=== PATIENT | male | born 1980 | race Caucasian/White ===

== ENCOUNTER 2021-07-22 15:56 | Emergency (ER) | payer OTHER, SELFPAY ==
[2021-07-22 16:03] VITALS: BP 142/90; PULSE 98; RESP 20; TEMP 36.1; O2SAT 100
--- NOTE | 2021-07-22 16:29 | ED.GENADULT ---
HPI - General Adult General Chief complaint: Unspecified Stated complaint: weakness History of Present Illness HPI narrative: This is a a 41-year-old male that comes in complaining stating that he has been taking his medication for diabetes and that his blood pressure was high yesterday and he took some medication of a friend of his he has been feeling tired again and he woke up this yesterday morning with his right eye was red and discontinued to get worse today he has no vision changes is just red Related Data Home Medications Medication Instructions Recorded Confirmed metformin 07/22/21 Allergies Allergy/AdvReac Type Severity Reaction Status Date / Time No Known Allergies Allergy Mild Verified 09/27/19 12:27 Review of Systems Review of Systems: Feeling tired weak with high blood pressure All systems reviewed & are unremarkable except as noted in HPI and below PMFSH Social History Social History Gender identity (if verbalized by the patient): Male Comments At time as signature, I have reviewed and agree with nursing past medical, social, surgical and family history. Please see nursing chart for further information. There is no relevant family history pertinent to the presenting complaint. Exam Narrative: GENERAL:Well-appearing, well-nourished, and in no acute distress. HEAD:Normocephalic, atraumatic. EYES: PERRLA subconjunctival hemorrhage ENT: Nares clear, no rhinorrhea or epistaxis. Mucous membranes moist. NECK: Supple. CHEST: Clear to auscultation. No respiratory distress. HEART: Regular rate and rhythm. No murmur heard. Normal peripheral pulses. ABDOMEN: Soft, nontender, nondistended, normal active bowel sounds. EXTREMITIES: Normal range of motion. No edema. SKIN: Warm, dry, no rash. NEURO: No focal deficits. Alert and oriented x3. Hypertensive, diabetes blood sugar 159 Patient is in need of a primary care provider had a long discussion with patient about hypertension and high blood pressure being the same thing as well as diabetes and hypertension being the silent killer explained the risk of a stroke Course Vital Signs Vital signs: Vital Signs Temperature 97.0 F L 07/22/21 16:03 Pulse Rate 98 07/22/21 16:03 Respiratory Rate 20 07/22/21 16:03 Blood Pressure 142/90 H 07/22/21 16:03 Pulse Oximetry 100 07/22/21 16:03 Temperature 97.0 F L 07/22/21 16:03 Pulse Rate 98 07/22/21 16:03 Respiratory Rate 20 07/22/21 16:03 Blood Pressure 142/90 H 07/22/21 16:03 Pulse Oximetry 100 07/22/21 16:03 Medical Decision Making Vital Signs Vital Signs: Vital Signs Temperature 97.0 F L 07/22/21 16:03 Pulse Rate 98 07/22/21 16:03 Respiratory Rate 20 07/22/21 16:03 Blood Pressure 142/90 H 07/22/21 16:03 Pulse Oximetry 100 07/22/21 16:03 Temperature 97.0 F L 07/22/21 16:03 Pulse Rate 98 07/22/21 16:03 Respiratory Rate 20 07/22/21 16:03 Blood Pressure 142/90 H 07/22/21 16:03 Pulse Oximetry 100 07/22/21 16:03 Lab Data Labs: Lab Results 07/22/21 Range/Units 16:38 POC Capillary Glucose 156 H (65-105) mg/dl Discharge Plan Discharge Clinical Impression: Subconjunctival hemorrhage of right eye Hypertension Qualifiers: Hypertension type: unspecified Qualified Code(s): I10 - Essential (primary) hypertension Diabetes Qualifiers: Diabetes mellitus type: type 2 Diabetes mellitus director long term care insulin use: without director long term care use Diabetes mellitus complication status: without complication Qualified Code(s): E11.9 - Type 2 diabetes mellitus without complications Patient Disposition: Home, Self-Care Condition: Stable Instructions: Antibiotic Form, Subconjunctival Hemorrhage (ED), Hypertension (ED), Hypertension and Diabetes (ED) Additional Instructions: Your blood pressure was elevated in the clinic today, Please JACOB schedule a followup visit with your personal physician with in the next 1-4 weeks for further evaluati
[2021-07-22 16:42] LABS: Glucose Point of Care 156 mg/dl (65-105)
== END 2021-07-22 17:30 | disposition home or self-care (01) ==
PROVIDERS: Emergency Provider Nurse Practitioner Family
DX: H11.31 Conjunctival hemorrhage, right eye (principal); E11.9 Type 2 diabetes mellitus without complications; I10 Essential (primary) hypertension
CPT/HCPCS: 82948; 99212; G0463

== ENCOUNTER → 2021-07-23 08:25 | Outpatient (CLI) | payer OTHER, SELFPAY ==
[2021-07-23 19:38] LABS: SARS-CoV-2 RNA PCR Negative
== END ==
PROVIDERS: Visit Provider Nurse Practitioner Family
DX: Z20.822 Contact with and (suspected) exposure to COVID-19 (principal)
CPT/HCPCS: C9803; U0003; U0005

== ENCOUNTER 2022-04-05 12:46 | Emergency (ER) | payer OTHER, SELFPAY ==
[2022-04-05 12:53] VITALS: BP 146/87; PULSE 94; RESP 16; TEMP 36.7; O2SAT 99
--- NOTE | 2022-04-05 12:54 | ED.DENTAL ---
HPI - Dental/Oral General Chief complaint: Dental/Oral Stated complaint: tooth pain Time Seen by Provider: 04/05/22 12:54 Source: patient, RN notes reviewed and old records reviewed Mode of arrival: ambulatory Limitations: no limitations History of Present Illness HPI Narrative: 42-year-old male presents to the [facility] with left-sided dental pain. Patient reports that he broke his tooth left lower molar 2 weeks ago and has had increased pain since. Has called [facility] dentistry and is on a waiting list. No treatment prior to arrival. MD Complaint: tooth pain Related Data Home Medications Medication Instructions Recorded Confirmed hydroxyzine HCl 25 mg tablet 1 tablet PO DAILY 04/05/22 04/05/22 losartan 50 mg tablet 1 tablet PO DAILY 04/05/22 04/05/22 montelukast 10 mg tablet 1 tablet PO DAILY 04/05/22 04/05/22 pravastatin 40 mg tablet 1 tablet PO DAILY 04/05/22 04/05/22 sitagliptin 100 mg tablet (Januvia) 1 tablet PO DAILY 04/05/22 04/05/22 trazodone 50 mg tablet 1 tablet PO DAILY 04/05/22 04/05/22 Allergies Allergy/AdvReac Type Severity Reaction Status Date / Time No Known Allergies Allergy Mild Verified 04/05/22 12:54 Review of Systems Review of Systems: All systems reviewed & are unremarkable except as noted in HPI and below Constitutional: Constitutional: Reports no additional constitutional complaints, Denies chills and Denies fever(s) Eyes: Eyes: Reports no additional eye complaints ENT: Reports as per HPI Comments: Dental pain, left lower Cardiovascular: Cardiovascular: Reports no additional cardiovascular complaints, Denies chest pain and Denies dyspnea Respiratory: Respiratory: Reports no additional respiratory complaints, Denies cough and Denies dyspnea Musculoskeletal: Musculoskeletal: Reports no additional musculoskeletal complaints Integumentary/Breasts: Skin/Breast: Reports system reviewed and no additional complaints, except as docu Neurologic: Reports system reviewed and no additional complaints, except as documented Psychiatric: Psychiatric: Reports no additional psychiatric complaints Allergic/Immunologic: Allergic/Immunologic: Reports no additional allergic/immunologic complaints PMFSH Past Medical History Medical History (Updated 04/05/22 @ 19:17 by Sunita Mariscal APRN) Diabetes High cholesterol Hypertension Social History Social History : Male Comments At the time of my signature, I reviewed and agree with the nursing past medical, surgical, social, and family history. There is no relevant family history pertinent to the patient complaint. Exam Const: General: healthy appearing, no acute distress and alert Nutritional Appearance: well nourished Orientation/consciousness: patient oriented x3 Limitations: no limitations HENMT: Head: normal to inspection Ears: external ears normal, TM's normal bilaterally and EAC's normal General nose exam: Normal external nose present and Normal nasal mucous membranes and turbinates present Face and sinus: normal facial exam Mouth: Yes Normal oral and palatal mucosa present Teeth and gingiva: poor dentition Teeth image: 1. Decayed molar 2. Caries noted, swelling to the surrounding gingiva Throat: posterior oropharynx normal, tonsils normal and uvula midline Eyes: Conjunctivae: conjunctivae normal Pupils: Equal, round and reactive pupils present Neck: Neck: normal visual inspection, no lymphadenopathy and no meningeal signs Chest: Chest palpation & inspection: normal inspection of the chest Resp: Effort & Inspection: normal respiratory effort Auscultation: clear to auscultation bilaterally Cardio: Rate: regular rate Rhythm: regular rhythm Skin: General skin exam: normal color Rashes: no rashes Wounds: no wounds Neuro: General: patient oriented x3, moves all extremities, no meningeal signs and no focal
--- NOTE | 2022-04-05 12:54 | ED.DENTAL ---
HPI - Dental/Oral General Chief complaint: Dental/Oral Stated complaint: tooth pain Time Seen by Provider: 04/05/22 12:54 Source: patient, RN notes reviewed and old records reviewed Mode of arrival: ambulatory Limitations: no limitations History of Present Illness HPI Narrative: 42-year-old male presents to the [facility] with dental pain to the left upper and lower. States he chipped his tooth several weeks ago and the pain has been increasing. Patient reports that he is on a waiting list for [facility] school [facility] dentistry but states it will be months. MD Complaint: tooth pain Related Data Home Medications Medication Instructions Recorded Confirmed hydroxyzine HCl 25 mg tablet 1 tablet PO DAILY 04/05/22 04/05/22 losartan 50 mg tablet 1 tablet PO DAILY 04/05/22 04/05/22 montelukast 10 mg tablet 1 tablet PO DAILY 04/05/22 04/05/22 pravastatin 40 mg tablet 1 tablet PO DAILY 04/05/22 04/05/22 sitagliptin 100 mg tablet (Januvia) 1 tablet PO DAILY 04/05/22 04/05/22 trazodone 50 mg tablet 1 tablet PO DAILY 04/05/22 04/05/22 Allergies Allergy/AdvReac Type Severity Reaction Status Date / Time No Known Allergies Allergy Mild Verified 04/05/22 12:54 Review of Systems Review of Systems: All systems reviewed & are unremarkable except as noted in HPI and below Constitutional: Constitutional: Reports no additional constitutional complaints, Denies chills and Denies fever(s) Eyes: Eyes: Reports no additional eye complaints ENT: Reports as per HPI Comments: Dental pain Cardiovascular: Cardiovascular: Reports no additional cardiovascular complaints, Denies chest pain and Denies dyspnea Respiratory: Respiratory: Reports no additional respiratory complaints, Denies cough and Denies dyspnea Musculoskeletal: Musculoskeletal: Reports no additional musculoskeletal complaints Integumentary/Breasts: Skin/Breast: Reports system reviewed and no additional complaints, except as docu Neurologic: Reports system reviewed and no additional complaints, except as documented Psychiatric: Psychiatric: Reports no additional psychiatric complaints Allergic/Immunologic: Allergic/Immunologic: Reports no additional allergic/immunologic complaints [facility] Past Medical History Medical History (Updated 04/05/22 @ 19:17 by Sunita Mariscal APRN) Diabetes High cholesterol Hypertension Social History Social History Gender identity (if verbalized by the patient): Male Comments At the time of my signature, I reviewed and agree with the nursing past medical, surgical, social, and family history. There is no relevant family history pertinent to the patient complaint. Exam Const: General: healthy appearing, no acute distress and alert Nutritional Appearance: well nourished Orientation/consciousness: patient oriented x3 Limitations: no limitations HENMT: Head: normal to inspection Ears: external ears normal, TM's normal bilaterally and EAC's normal General nose exam: Normal external nose present and Normal nasal mucous membranes and turbinates present Face and sinus: normal facial exam Mouth: Yes Normal oral and palatal mucosa present Teeth and gingiva: poor dentition Throat: posterior oropharynx normal, tonsils normal and uvula midline Eyes: Conjunctivae: conjunctivae normal Pupils: Equal, round and reactive pupils present Neck: Neck: normal visual inspection, no lymphadenopathy and no meningeal signs Chest: Chest palpation & inspection: normal inspection of the chest Resp: Effort & Inspection: normal respiratory effort Auscultation: clear to auscultation bilaterally Cardio: Rate: regular rate Rhythm: regular rhythm : General: Yes no CVA tenderness Back/Spine/Pelvis: Back: no CVA tenderness Skin: General skin exam: normal color Rashes: no rashes Wounds: no wounds Neuro: General: patient oriented x3, moves all extremities, no meningeal signs and no focal motor deficits
== END 2022-04-05 13:10 | disposition home or self-care (01) ==
PROVIDERS: Emergency Provider Nurse Practitioner
DX: K02.9 Dental caries, unspecified (principal); S02.5XXA Fracture of tooth (traumatic), initial encounter for closed fracture; X58.XXXA Exposure to other specified factors, initial encounter; E11.9 Type 2 diabetes mellitus without complications; E78.00 Pure hypercholesterolemia, unspecified; I10 Essential (primary) hypertension
CPT/HCPCS: 99213; G0463

== ENCOUNTER 2022-05-18 13:26 | Emergency (ER) | payer OTHER, SELFPAY ==
[2022-05-18] VITALS (29 sets, daily range): BP systolic 127–156; BP diastolic 79–98; PULSE 71–95; RESP 0–18; TEMP 36.6; O2SAT 94–100
--- NOTE | ~2022-05-18 | CT_ITS ---
EXAMINATION: CT brain wo con DATE: 05/18/2022 14:43 INDICATION: Acute headache. TECHNIQUE: Computed tomography (CT) of the head was performed without intravenous contrast. The mA wa s adjusted according to patient size. Iterative reconstruction technique was employed. The dose-lengt h product was 605.33 mGy-cm. COMPARISON: None FINDINGS: There is no intracranial hemorrhage, acute infarction, or abnormal intracranial mass lesion . The ventricles are normal in size. The orbits are normal. There is mild mucosal thickening in the e thmoid sinuses. The mastoid air cells are normal. There are plates and screws involving the skull and facial bones. There are expansile nonaggressive lytic lesions with groundglass matrix and fat in the skull on the right, likely benign. IMPRESSION: 1. Normal brain. Reviewed, dictated and finalized at location A. IMPRESSION: 1. Normal brain.
[2022-05-18] MEDS: METOCLOPRAMIDE HCL INJ 10 MG/2 ML VIAL IV PUSH (14:10)
[2022-05-18] MEDS: LACTATED RINGERS 1,000 ML 999 ML IV CONT (14:10)
[2022-05-18] MEDS: diphenhydrAMINE HCl INJ 50 MG/ML VIAL 25 MG IV PUSH (14:10)
--- NOTE | 2022-05-18 14:29 | ED.GENADULT ---
HPI - General Adult General Chief complaint: Nausea/Vomiting/Diarrhea Stated complaint: nausea, body aches, headache Time Seen by Provider: 05/18/22 13:34 Source: patient Mode of arrival: ambulatory Limitations: no limitations History of Present Illness HPI narrative: This is a 42 year old male with history of hypertension and Diabetes Mellitus who presents for evaluation of nausea, vomiting and headache. He was diagnosed with COVID on 05/02/22. He states he woke up with diffuse head on Monday. He describes constant throbbing headache since , and he has been having associated nausea and vomiting. He reports frontal sinus pressure since Monday. He has been taking aleve and excedrin for his pain. HE reports some improvement with these medications. He took aleve 1 hour ago and he took Excedrin 3 hours ago. His pain is worse with moving his neck and moving his eyes. He reports chills and sweating. He has taken temperature and he has not had a fever. He reports his pain is 6/10 currently. Related Data Home Medications Medication Instructions Recorded Confirmed hydroxyzine HCl 25 mg tablet 1 tablet PO DAILY 04/05/22 04/05/22 losartan 50 mg tablet 1 tablet PO DAILY 04/05/22 04/05/22 montelukast 10 mg tablet 1 tablet PO DAILY 04/05/22 04/05/22 pravastatin 40 mg tablet 1 tablet PO DAILY 04/05/22 04/05/22 sitagliptin 100 mg tablet (Januvia) 1 tablet PO DAILY 04/05/22 04/05/22 trazodone 50 mg tablet 1 tablet PO DAILY 04/05/22 04/05/22 Allergies Allergy/AdvReac Type Severity Reaction Status Date / Time No Known Allergies Allergy Mild Verified 04/05/22 12:54 Review of Systems Review of Systems: All systems reviewed & are unremarkable except as noted in HPI and below Constitutional: Constitutional: Reports chills, Reports fatigue and Denies weakness Eyes: Eyes: Denies change in vision and Denies photophobia ENT: Reports nasal congestion Cardiovascular: Cardiovascular: Denies chest pain and Denies radiating jaw, neck or arm pain Gastrointestinal: Gastrointestinal: Denies abdominal pain, Denies diarrhea, Reports nausea and Reports vomiting Neurologic: Reports headache(s), Denies focal weakness and Denies numbness PMFSH Past Medical History Medical History Diabetes High cholesterol Hypertension Social History Social History (Updated 05/18/22 @ 14:36 by Merline Barahona MD) Smoking packs per day: 1 Smoking cigarettes per day: 20.0 Smoking status: Current every day smoker Gender identity (if verbalized by the patient): Male Exam Narrative: GENERAL: Well-appearing, well-nourished, and in no acute distress. HEAD: Normocephalic, atraumatic EYES: PERRLA and EOMI, conjunctiva clear without discharge EARS: TM's clear bilaterally without erythema or dullness NOSE: Nares clear, no rhinorrhea or epistaxis THROAT:Mucous membranes moist, Oropharynx normal without erythema, exudate, peritonsillar swelling or fluctuance NECK: Supple, without lymphadenopathy or mass RESPIRATORY: No respiratory distress, Airway patent, Respirations non-labored, Clear to auscultation without rales, rhonchi or wheeze HEART: Regular rate and rhythm. No murmur heard. Normal peripheral pulses. ABDOMEN: Soft, nontender, nondistended, normal active bowel sounds. No masses. No rebound or guarding, No organomegaly. EXTREMITIES: No edema, normal strength with full range of motion. SKIN: Warm, dry, normal color without rash NEURO: Alert and oriented x3. CN 2-12 grossly intact. No focal deficits. PSYCH: Normal mood and affect. Course Reevaluation(s) Reevaluation #1: Patient states that his headache has completely resolved. He has not fever or elevated wbc. This does not appear to be SAH or bacterial meningitis. This headache is likely related to sinus. PAtient is aware of this right skull lesion. he has had surgery on it in the past. Date: 05/18/22 Time: 17:31 Vital Sig
[2022-05-18 14:34] LABS: Basophils Percent Auto 0.4 % (0.2-1.2); Eosinophils Absolute Auto 0.1 K/mm3 (0-0.3); Eosinophils Percent Auto 0.6 % (0-4.4); Hematocrit 45.3 % (42.0-52.0); Hemoglobin 15.6 g/dL (14.0-18.0); Immature Granulocyte Absolute 0.04 K/mm3 (0.00-0.031); Immature Granulocyte Percent A 0.5 % (0-0.5); Lymphocytes Absolute Auto 1.33 K/mm3 (0.9-3.2); Lymphocytes Percent Auto 15.7 % (18.3-44.2); Mean Corpuscular HGB Conc 34.4 g/dl (32-36); Mean Corpuscular Hemoglobin 28.6 pg (26-34); Mean Corpuscular Volume 83.1 fl (80-100); Mean Platelet Volume 10.9 fl (7.4-10.4); Monocytes Absolute Auto 0.9 K/mm3 (0.1-0.6); Monocytes Percent Auto 10.1 % (2.6-8.5); Neutrophils Absolute Auto 6.2 K/mm3 (1.3-6.7); Neutrophils Percent Auto 72.7 % (45.5-73.1); Platelet Count Result 175 k/mm3 (150-375); Red Blood Count 5.45 M/mm3 (4.6-6.20); Red Cell Distribution Width 13.2 % (11.5-14.5); White Blood Count 8.5 K/mm3 (4.5-10.0)
[2022-05-18 14:47] LABS: Alanine Aminotransferase 55 U/L (6-50); Albumin Level 4.2 g/dL (3.5-5.1); Alkaline Phosphatase 86 U/L (38-126); Anion Gap 6 mmol/L (8-16); Aspartate Amino Transferase 23 U/L (17-59); Bilirubin,Total 0.9 mg/dL (0.2-1.3); Blood Urea Nitrogen 17 mg/dL (9-20); Calcium 8.9 mg/dL (8.4-10.2); Carbon Dioxide 27 mmol/L (22-30); Chloride 100 mmol/L (98-107); Estimated CRCL calculation 137 ml/min; Estimated Glomerular Filt Rate > 60; Glucose 194 mg/dL (65-110); Lipase 48 U/L (23-300); Potassium 4.1 mmol/L (3.4-5.0); Sodium 133 mmol/L (137-145)
[2022-05-18] MEDS: KETOROLAC 30 MG/ML VIAL (*BKC) IV PUSH (15:09)
[2022-05-18 16:53] LABS: Appearance Urine Clear (Clear); Bilirubin Urine Negative (Negative); Blood Urine Negative (Negative); Color Urine Yellow (Yellow); Glucose Urine UA Trace mg/dL (Negative); Ketones Urine Negative (Negative); Leukocyte Esterase Ur Negative LEU/UL (Negative); Nitrate Urine Negative (Negative); Protein Urine Negative (Negative); Urobilinogen Urine 0.2 mg/dL (<2.0)
[2022-05-18 16:57] LABS: RBC Urine 0-2 /hpf (0-2); Squamous Epithelial Cell Urine Rare /hpf (Few)
[2022-05-18 17:01] LABS: Add Urine Microscopic? YES
== END 2022-05-18 18:00 | disposition home or self-care (01) ==
PROVIDERS: Emergency Provider General Practice
DX: J01.90 Acute sinusitis, unspecified (principal); R51.9 Headache, unspecified; I10 Essential (primary) hypertension; E11.9 Type 2 diabetes mellitus without complications; F17.210 Nicotine dependence, cigarettes, uncomplicated
CPT/HCPCS: 36415; 70450; 80053; 81001; 83690; 85025; 96361; 96374; 96375; 99284; J1200; J1885; J2765; J7120

== ENCOUNTER 2022-10-10 14:53 | Emergency (ER) | payer OTHER, SELFPAY ==
[2022-10-10 15:00] VITALS: BP 120/76; PULSE 73; RESP 12; TEMP 36.7; O2SAT 100
--- NOTE | 2022-10-10 15:19 | ED.DENTAL ---
HPI - Dental/Oral General Chief complaint: Dental/Oral Stated complaint: Dental Pain Time Seen by Provider: 10/10/22 15:19 Source: patient, RN notes reviewed and old records reviewed Mode of arrival: ambulatory Limitations: no limitations History of Present Illness HPI Narrative: 42-year-old male presents to the [facility] with dental pain to the left lower. Was seen for the same back in March 2022. States he is in middle of an insurance change and will see a dentist. MD Complaint: tooth pain Related Data Home Medications Medication Instructions Recorded Confirmed losartan 50 mg tablet 1 tablet PO DAILY 04/05/22 10/10/22 pravastatin 40 mg tablet 1 tablet PO DAILY 04/05/22 10/10/22 sitagliptin phosphate 100 mg 1 tablet PO DAILY 04/05/22 10/10/22 tablet (Januvia) clomiphene citrate 50 mg tablet 50 mg PO DAILY 10/10/22 10/10/22 hydroxyzine HCl 50 mg tablet 50 mg PO DAILY 10/10/22 10/10/22 loratadine 10 mg tablet 10 mg PO DAILY 10/10/22 10/10/22 Allergies Allergy/AdvReac Type Severity Reaction Status Date / Time No Known Allergies Allergy Mild Verified 10/10/22 15:05 Review of Systems Review of Systems: All systems reviewed & are unremarkable except as noted in HPI and below Constitutional: Constitutional: Reports no additional constitutional complaints, Denies chills and Denies fever(s) Eyes: Eyes: Reports no additional eye complaints ENT: Reports as per HPI Comments: Dental pain left lower Cardiovascular: Cardiovascular: Reports no additional cardiovascular complaints, Denies chest pain and Denies dyspnea Respiratory: Respiratory: Reports no additional respiratory complaints, Denies cough and Denies dyspnea Musculoskeletal: Musculoskeletal: Reports no additional musculoskeletal complaints Integumentary/Breasts: Skin/Breast: Reports system reviewed and no additional complaints, except as docu Neurologic: Reports system reviewed and no additional complaints, except as documented Psychiatric: Psychiatric: Reports no additional psychiatric complaints Allergic/Immunologic: Allergic/Immunologic: Reports no additional allergic/immunologic complaints PMFSH Past Medical History Medical History Diabetes High cholesterol Hypertension Social History Social History Smoking packs per day: 1 Smoking cigarettes per day: 20.0 Smoking status: Current every day smoker Gender identity (if verbalized by the patient): Male Comments At the time of my signature, I reviewed and agree with the nursing past medical, surgical, social, and family history. There is no relevant family history pertinent to the patient complaint. Exam Const: General: healthy appearing, no acute distress, alert and well nourished Nutritional Appearance: well nourished Orientation/consciousness: patient oriented x3 Limitations: no limitations HENMT: Head: normal to inspection Ears: external ears normal, TM's normal bilaterally and EAC's normal Face/Nose/Sinus: Normal external nose present, Normal nasal mucous membranes and turbinates present and normal facial exam Face and sinus: normal facial exam Mouth: Yes Normal oral and palatal mucosa present Teeth and gingiva: poor dentition Teeth image: 1. Decayed to 2. inflammation around teeth 18 and 19 with some increased erythema. Throat: posterior oropharynx normal, tonsils normal and uvula midline Eyes: General: appearance normal, both eyes and all related structures Alignment and Position: alignment normal Conjunctivae: conjunctivae normal Pupils: Equal, round and reactive pupils present Neck: Neck: normal visual inspection, full ROM, no lymphadenopathy and no meningeal signs Chest: Chest palpation & inspection: normal inspection of the chest Resp: Effort & Inspection: normal respiratory effort Auscultation: clear to auscultation bilaterally Cardio: Rate: regular
== END 2022-10-10 15:38 | disposition home or self-care (01) ==
PROVIDERS: Emergency Provider Nurse Practitioner
DX: K02.9 Dental caries, unspecified (principal); K04.7 Periapical abscess without sinus; F17.210 Nicotine dependence, cigarettes, uncomplicated; E11.9 Type 2 diabetes mellitus without complications; E78.00 Pure hypercholesterolemia, unspecified; I10 Essential (primary) hypertension
CPT/HCPCS: 99213; G0463

== ENCOUNTER 2022-10-21 12:39 | Emergency (ER) | payer OTHER, SELFPAY ==
--- NOTE | 2022-10-21 12:46 | ED_ITS ---
HPI - Abdominal Pain General Stated Complaint: Abdominal Pain Source: patient Mode of arrival: ambulatory Limitations: no limitations Related Data Home Medications Medication Instructions Recorded Confirmed losartan 50 mg tablet 1 tablet PO DAILY 04/05/22 10/10/22 pravastatin 40 mg tablet 1 tablet PO DAILY 04/05/22 10/10/22 sitagliptin phosphate 100 mg 1 tablet PO DAILY 04/05/22 10/10/22 tablet (Januvia) clomiphene citrate 50 mg tablet 50 mg PO DAILY 10/10/22 10/10/22 hydroxyzine HCl 50 mg tablet 50 mg PO DAILY 10/10/22 10/10/22 loratadine 10 mg tablet 10 mg PO DAILY 10/10/22 10/10/22 Allergies Allergy/AdvReac Type Severity Reaction Status Date / Time No Known Allergies Allergy Mild Verified 10/10/22 15:05 PMFSH Past Medical History Medical History Diabetes High cholesterol Hypertension Social History Social History Smoking packs per day: 1 Smoking cigarettes per day: 20.0 Smoking status: Current every day smoker Gender identity (if verbalized by the patient): Male Comments At the time of my signature, I reviewed and agree with the nursing past medical, surgical, social, and family history. There is no relevant family history pertinent to the patient complaint. Course Course Emergency Course: Portions of this record may have been created with voice recognition software. Level of Care: Express Care Visit Vital Signs Vital signs: Vital signs reviewed Discharge Plan Discharge Prescriptions: No Action clomiphene citrate 50 mg tablet 50 mg PO DAILY hydroxyzine HCl 50 mg tablet 50 mg PO DAILY loratadine 10 mg tablet 10 mg PO DAILY penicillin V potassium 500 mg tablet 500 mg PO Q12H 10 Days Qty: 20 0RF ibuprofen 600 mg tablet 600 mg PO TID PRN (Reason: fever or pain) Qty: 30 0RF losartan 50 mg tablet 1 tablet PO DAILY pravastatin 40 mg tablet 1 tablet PO DAILY Januvia 100 mg tablet 1 tablet PO DAILY Follow-up/Referrals: PHYSICIAN,ASSOCIATE PROFESSOR OF LITERACY [Primary Care Provider] - Quality NIHSS Nursing Documentation ED NIHSS nursing documentation: reviewed/agree
[2022-10-21 12:50] VITALS: BP 153/83; PULSE 93; RESP 18; TEMP 36.8; O2SAT 99
--- NOTE | 2022-10-21 13:01 | ED.URI ---
HPI - URI/Sore Throat General Chief Complaint: Upper Respiratory Infection Stated Complaint: Abdominal Pain Time Seen by Provider: 10/21/22 13:00 Source: patient Mode of arrival: ambulatory Limitations: no limitations History of Present Illness HPI Narrative: Mr. Javier is a 42-year-old male patient presenting to the clinic today with complaints nausea, vomiting, eye irritation, and congestion since this morning. He reports he woke up this morning and his eyes were matted shut with some yellowish discharge. He reports he fell as though his chest was congested however he has done quite a bit of coughing and feels as though he is cleared his chest. He denies any shortness of breath or chest pain. He states his last time of vomiting was at 7:00 a.m. this morning. Patient states he is feeling a great deal better but wanted to come in and be checked out. He is requesting a work note MD elicited complaint: cough, nasal congestion and other ( Abdominal cramping prior to vomiting) Related Data Home Medications Medication Instructions Recorded Confirmed losartan 50 mg tablet 1 tablet PO DAILY 04/05/22 10/21/22 sitagliptin phosphate 100 mg 1 tablet PO DAILY 04/05/22 10/21/22 tablet (Januvia) Allergies Allergy/AdvReac Type Severity Reaction Status Date / Time No Known Allergies Allergy Mild Verified 10/21/22 13:01 Review of Systems Review of Systems: Pertinent positives per HPI. Patient denies any fever, chills, rash, headache, visual changes, dizziness, cough, shortness of breath, chest pain, palpitations, nausea, vomiting, diarrhea, constipation, abdominal pain, or any urinary issues. [facility] Past Medical History Medical History Diabetes High cholesterol Hypertension Social History Social History Smoking packs per day: 1 Smoking cigarettes per day: 20.0 Smoking status: Current every day smoker Gender identity (if verbalized by the patient): Male Comments At the time of my signature, I reviewed and agree with the nursing past medical, surgical, social, and family history. There is no relevant family history pertinent to the patient complaint. Exam Narrative: General: Well-developed, obese, in no apparent distress Head: Normocephalic, atraumatic Eyes: Pupils equally round and reactive to light bilaterally, EOM intact, sclera and conjunctive clear, no discharge, lids normal Ears: TMs intact and clear, ear canals clear, no drainage, grossly hearing normal. Nose: Nares patent, no discharge, no inflammation, no sinus tenderness. Mouth: Oral pharynx without lesions or masses, good dentition, MMM. Neck: Supple, trachea midline, no enlargement of anterior or posterior cervical nodes, no thyroid masses or goiter palpable. Cardio: Regular rate and rhythm, s1 and s2 normal, no murmur appreciated. Resp: Clear to auscultation bilaterally, no rhonchi, rales, wheezing or rubs Abdomen: Soft, pliable, nontender palpation, no organomegaly, bowel sounds present all 4 quadrants, no CVAT tenderness Course Course Emergency Course: Portions of this record may have been created with voice recognition software. Level of Care: Express Care Visit Vital Signs Vital signs: Vital Signs Temperature 36.8 C 10/21/22 12:50 Pulse Rate 93 10/21/22 12:50 Respiratory Rate 18 10/21/22 12:50 Blood Pressure 153/83 H 10/21/22 12:50 Pulse Oximetry 99 10/21/22 12:50 Oxygen Delivery Room Air 10/21/22 12:50 Temperature 36.8 C 10/21/22 12:50 Pulse Rate 93 10/21/22 12:50 Respiratory Rate 18 10/21/22 12:50 Blood Pressure 153/83 H 10/21/22 12:50 Pulse Oximetry 99 10/21/22 12:50 Oxygen Delivery Room Air 10/21/22 12:50 Vital signs reviewed MDM - URI/Sore Throat MDM Narrative Medical decision making narrative: At the time of visit patient is resting comfortably on the exam
== END 2022-10-21 13:40 | disposition home or self-care (01) ==
PROVIDERS: Emergency Provider Nurse Practitioner Family
DX: K52.9 Noninfective gastroenteritis and colitis, unspecified (principal); J06.9 Acute upper respiratory infection, unspecified; H10.33 Unspecified acute conjunctivitis, bilateral; Z20.822 Contact with and (suspected) exposure to COVID-19; E11.9 Type 2 diabetes mellitus without complications; E78.00 Pure hypercholesterolemia, unspecified; I10 Essential (primary) hypertension
CPT/HCPCS: 87426; 87804; 99213; C9803; G0463

== ENCOUNTER 2022-11-05 11:53 | Emergency (ER) | payer OTHER, SELFPAY | END 2022-11-05 13:09 | disposition left against medical advice (07) | PROVIDERS: Emergency Provider Internal Medicine Hematology & Oncology | DX: Z53.21 Procedure and treatment not carried out due to patient leaving prior to being seen by health care provider (principal) | CPT/HCPCS: 99199 ==

== ENCOUNTER 2023-01-03 11:27 | Emergency (ER) | payer OTHER, SELFPAY ==
--- NOTE | ~2023-01-03 | XR_ITS ---
XR hand RT min 3V 01/03/2023 12:13 Indication: Right hand pain after trauma Procedure: 3 views right hand Comparison: No prior studies for comparison. Findings: There is a nondisplaced fracture of the right fifth metacarpal neck distally. There is a cl eft in the distal pole of the scaphoid. If there is point tenderness in this location, correlation wi dedicated wrist series recommended. No other fracture identified. Impression: 1: Nondisplaced fracture right fifth metacarpal neck distally. Mild volar angulation. 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 If there is point tenderness in this lo cation, correlation with dedicated wrist series recommended. Reviewed, dictated and finalized at location L. [employer] Impression: 1: Nondisplaced fracture right fifth metacarpal neck distally. Mild volar angul ation. 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 If there is point tenderness in this location, correlation with dedicated wrist series recommend ed.
[2023-01-03 11:47] VITALS: BP 145/81; PULSE 103; RESP 16; TEMP 37.1; O2SAT 98
--- NOTE | 2023-01-03 14:15 | ED.UPPEXIN ---
HPI - Extremity Injury (Upper) General Chief Complaint: Extremity Injury, Upper Stated Complaint: hand injury Time Seen by Provider: 01/03/23 13:52 History of Present Illness HPI narrative: 42-year-old [id number] male here for evaluation of right hand pain since punching concrete wall last night. States that he was frustrated in an argument when he punched the wall. He has had pain and swelling to the right hand ever since. He is attempted Tylenol without relief of his pain. There is no numbness or tingling in the fingers. No other injury sustained in the accident. No break in skin integrity. Related Data Home Medications Medication Instructions Recorded Confirmed losartan 50 mg tablet 1 tablet PO DAILY 04/05/22 11/05/22 sitagliptin phosphate 100 mg 1 tablet PO DAILY 04/05/22 11/05/22 tablet (Januvia) glipizide 5 mg tablet, extended 5 mg PO DAILY 11/05/22 11/05/22 release 24 hr loratadine 10 mg tablet 10 mg PO DAILY 11/05/22 11/05/22 Allergies Allergy/AdvReac Type Severity Reaction Status Date / Time No Known Allergies Allergy Mild Verified 01/03/23 11:53 Review of Systems Review of Systems: Gen.: Denies fevers or chills Eyes: Denies eye pain or visual change ENT: Denies congestion Respiratory: Denies shortness of breath or cough CV: Denies chest pain or palpitations GI: Denies abdominal pain nausea, emesis or diarrhea denies burning, urgency, frequency or hematuria Musculoskeletal: Reports right hand pain Neuro: Denies numbness, tingling, weakness or focal weakness Skin: Denies rash Except as documented, all other systems reviewed and negative PMFSH Past Medical History Medical History Diabetes High cholesterol Hypertension Social History Social History Smoking packs per day: 1 Smoking cigarettes per day: 20.0 Smoking status: Current every day smoker Gender identity (if verbalized by the patient): Male Exam Narrative: APPEARANCE: Well appearing, no pain in distress, well-nourished. Head: Normocephalic and atraumatic. EYES: PERRLA/EOMI, conjunctivae clear NOSE: No nasal drainage EARS: External ear normal in appearance THROAT: Oropharynx is clear. Mucous membranes are moist. NECK: Supple. No adenopathy, no masses. RESPIRATORY: Airway patent, respirations nonlabored. Clear to auscultation bilaterally, no rales, rhonchi, wheezing. CARDIOVASCULAR: Regular rate and rhythm without murmurs, rubs, or gallops. ABDOMINAL: Normoactive bowel sounds. Soft, nontender, nondistended. No rebound tenderness or guarding. MUSCULOSKELETAL: There is swelling and tenderness to the base of the fifth metacarpal on the right hand. There is some malrotation of the fifth digit when patient makes a fist. He is neurovascularly intact distal to the area of pain. He has no anatomic snuffbox tenderness whatsoever, no tenderness to palpation along the distal radius and the distal ulna. NEURO: Normal speech. No focal neurologic deficits. SKIN: Skin is warm and dry. No rashes. PSYCHIATRIC: Normal affect/mood. Course Vital Signs Vital signs: Vital Signs Temperature 98.8 F 01/03/23 11:47 Pulse Rate 103 H 01/03/23 11:47 Respiratory Rate 16 01/03/23 11:47 Blood Pressure 145/81 H 01/03/23 11:47 Pulse Oximetry 98 01/03/23 11:47 Oxygen Delivery Room Air 01/03/23 11:47 Temperature 98.8 F 01/03/23 11:47 Pulse Rate 103 H 01/03/23 11:47 Respiratory Rate 16 01/03/23 11:47 Blood Pressure 145/81 H 01/03/23 11:47 Pulse Oximetry 98 01/03/23 11:47 Oxygen Delivery Room Air 01/03/23 11:47 MDM - Extremity Injury (Upper) MDM Narrative Medical decision making narrative: 42-year-old right-handed male here for evaluation of right hand pain after punching a wall yesterday with evidence of a nondisplaced fifth metacarpal fracture on the x-ray. Slight malrotati
[2023-01-03] MEDS: HYDROcodone/acetaminophen (*CRX) 5-325 MG TABLET 1 TAB PO (15:09)
== END 2023-01-03 15:24 | disposition home or self-care (01) ==
PROVIDERS: Emergency Provider Physician Assistant
DX: S62.366A Nondisplaced fracture of neck of fifth metacarpal bone, right hand, initial encounter for closed fracture (principal); W22.09XA Striking against other stationary object, initial encounter; E11.9 Type 2 diabetes mellitus without complications; E78.00 Pure hypercholesterolemia, unspecified; I10 Essential (primary) hypertension; F17.210 Nicotine dependence, cigarettes, uncomplicated; Z79.84 Long term (current) use of oral hypoglycemic drugs
CPT/HCPCS: 29125; 73130; 99284; A9270

== ENCOUNTER 2023-06-07 17:47 | Emergency (ER) | payer OTHER, SELFPAY ==
--- NOTE | ~2023-06-07 | XR_ITS ---
EXAMINATION: XR chest 2V Exam Date/Time: 06/07/2023 18:00 CDT HISTORY: Lt sided CP x 3 wks; HTN, DM, smoker Comparison: None. RESULT: Lines, tubes, and devices: Cholecystectomy clips. Lungs and pleura: Clear. Cardiomediastinal silhouette: Unremarkable. Other: No acute osseous or upper abdominal finding. IMPRESSION: No acute cardiopulmonary process. Reviewed, dictated and finalized at location K.
--- NOTE | 2023-06-07 17:48 | ECG_ITS ---
Measurements Intervals Horner Rate: 101 P: 42 CT: 144 QRS: 34 QRSD: 77 T: 26 QT: 314 QTc: 408 Interpretive Statements SINUS TACHYCARDIA NONSPECIFIC T-WAVE ABNORMALITY ABNORMAL RHYTHM ECG NO PREVIOUS ECG AVAILABLE FOR COMPARISON Electronically Signed On 06-07-2023 19:39:55 CDT by Brenda Smith M.D.
[2023-06-07 17:51] VITALS: BP 158/85; PULSE 104; RESP 19; TEMP 36.4; O2SAT 98
--- NOTE | 2023-06-07 17:53 | ED.CHESTPAIN ---
HPI - Chest Pain General Chief Complaint: Chest Pain Stated Complaint: CP x few days Time Seen by Provider: 06/07/23 17:50 History of Present Illness HPI narrative: Patient is a 43-year-old male with a history of diabetes, hypertension, hyperlipidemia presenting with chest pain. Patient states that for the last several days he has had left-sided chest discomfort. States that sometimes it becomes painful and feels like a squeezing sensation. Denies alleviating or exacerbating factors. Denies shortness of breath, lightheadedness, cough, fevers. States that he was having some body aches several days ago. Denies headache, numbness or weakness, abdominal pain, nausea or vomiting, diarrhea, dysuria, leg swelling. Related Data Home Medications Medication Instructions Recorded Confirmed losartan 50 mg tablet 1 tablet PO DAILY 04/05/22 11/05/22 sitagliptin phosphate 100 mg 1 tablet PO DAILY 04/05/22 11/05/22 tablet (Januvia) glipizide 5 mg tablet, extended 5 mg PO DAILY 11/05/22 11/05/22 release 24 hr loratadine 10 mg tablet 10 mg PO DAILY 11/05/22 11/05/22 Allergies Allergy/AdvReac Type Severity Reaction Status Date / Time No Known Allergies Allergy Mild Verified 01/03/23 11:53 Review of Systems Review of Systems: All systems reviewed & are unremarkable except as noted in HPI and below PMFSH Past Medical History Medical History Diabetes High cholesterol Hypertension Social History Social History Smoking packs per day: 1 Smoking cigarettes per day: 20.0 Smoking status: Current every day smoker Gender identity (if verbalized by the patient): Male Exam Narrative: GENERAL: Well-appearing, well-nourished, and in no acute distress. HEAD: Normocephalic, atraumatic. EYES: PERRLA and EOMI. ENT: Nares clear, no rhinorrhea or epistaxis. Mucous membranes moist. NECK: Supple. CHEST: Scattered expiratory wheezing, no crackles, no respiratory distress HEART: Tachycardic, regular rhythm, radial pulses 2+ ABDOMEN: Soft, nontender, nondistended EXTREMITIES: Normal range of motion. No edema. SKIN: Warm, dry, no rash. NEURO: No focal deficits. Alert and oriented x3. PSYCH: Normal mood and affect. Course Vital Signs Vital signs: Vital Signs Temperature 97.6 F 06/07/23 17:51 Pulse Rate 104 H 06/07/23 17:51 Respiratory Rate 19 06/07/23 17:51 Blood Pressure 158/85 H 06/07/23 17:51 Pulse Oximetry 98 06/07/23 17:51 Oxygen Delivery Room Air 06/07/23 17:51 Temperature 97.6 F 06/07/23 17:51 Pulse Rate 88 06/07/23 20:19 Respiratory Rate 18 06/07/23 20:19 Blood Pressure 128/71 06/07/23 20:19 Pulse Oximetry 98 06/07/23 20:19 Oxygen Delivery Room Air 06/07/23 17:51 MDM - Chest Pain MDM Narrative Medical decision making narrative: Patient is a 43-year-old male presenting with several days of chest discomfort and pain. Patient is hypertensive and intermittently tachycardic. Saturating well on room air. Exam otherwise remarkable for the above. EKG per my interpretation shows sinus tachycardia, normal axis and intervals, nonspecific T wave flattening, no ST elevations or depressions. Blood work is unremarkable. D-dimer is negative. Troponins undetectable x2. On my reevaluation, the patient is resting comfortably. Discussed the reassuring work-up. He feels comfortable going home which I think is reasonable. Advised PCP follow-up. Appropriate return precautions given. Discharged in stable condition. Differential Diagnosis Differential diagnosis: Likely stable angina, atypical chest pain, costochondritis and chest pain Medical Records Data Attestation: I reviewed the patient's medical records. Lab Data Attestation: I reviewed the patient's lab results. 06/07/23 17:55 06/07/23 17:55 Labs: Lab Results 06/07/23 06/07/23 0
--- NOTE | 2023-06-07 18:02 | PC.NURSE ---
pt leaving the floor for chest xray @[id number]
[2023-06-07 18:03] LABS: Basophils Absolute Auto 0.1 K/mm3 (0.0-0.1); Basophils Percent Auto 0.6 % (0.2-1.2); Eosinophils Absolute Auto 0.1 K/mm3 (0-0.3); Hemoglobin 15.9 g/dL (14.0-18.0); Immature Granulocyte Absolute 0.03 K/mm3 (0.00-0.031); Immature Granulocyte Percent A 0.3 % (0-0.5); Lymphocytes Absolute Auto 2.65 K/mm3 (0.9-3.2); Lymphocytes Percent Auto 25.8 % (18.3-44.2); Mean Corpuscular HGB Conc 34.6 g/dl (32-36); Mean Corpuscular Hemoglobin 30.2 pg (26-34); Mean Corpuscular Volume 87.5 fl (80-100); Mean Platelet Volume 10.2 fl (7.4-10.4); Monocytes Absolute Auto 0.7 K/mm3 (0.1-0.6); Monocytes Percent Auto 6.9 % (2.6-8.5); Neutrophils Absolute Auto 6.7 K/mm3 (1.3-6.7); Neutrophils Percent Auto 65.4 % (45.5-73.1); Platelet Count Result 204 k/mm3 (150-375); Red Blood Count 5.26 M/mm3 (4.6-6.20); Red Cell Distribution Width 12.7 % (11.5-14.5); White Blood Count 10.3 K/mm3 (4.5-10.0)
[2023-06-07 18:11] VITALS: PULSE 98; RESP 17; O2SAT 96
[2023-06-07 18:15] VITALS: PULSE 98; RESP 19; O2SAT 97
[2023-06-07 18:16] LABS: INR 0.9; Prothrombin Time 12.9 Seconds (11.1-14.7)
[2023-06-07] MEDS: ASPIRIN 81 MG CHEWABLE TABLET 324 MG PO (18:16)
--- NOTE | 2023-06-07 18:16 | PC.NURSE ---
pt took x3, 81mg aspirin prior to coming to the ED. administered [address] orders.
[2023-06-07 18:20] LABS: Alanine Aminotransferase 96 U/L (6-50); Albumin Level 4.2 g/dL (3.5-5.1); Alkaline Phosphatase 109 U/L (38-126); Anion Gap 8 mmol/L (8-16); Aspartate Amino Transferase 57 U/L (17-59); Bilirubin,Total 0.8 mg/dL (0.2-1.3); Blood Urea Nitrogen 16 mg/dL (9-20); Calcium 8.9 mg/dL (8.4-10.2); Carbon Dioxide 28 mmol/L (22-30); Chloride 103 mmol/L (98-107); Estimated CRCL calculation 113 ml/min; Estimated Glomerular Filt Rate > 60; Glucose 161 mg/dL (65-110); Lipase 60 U/L (23-300); Potassium 4.1 mmol/L (3.4-5.0); Sodium 139 mmol/L (137-145)
[2023-06-07] MEDS: LACTATED RINGERS 1,000 ML 999 ML IV CONT (18:30)
[2023-06-07 18:31] LABS: Troponin I < 0.012 ng/mL (0.000-0.034)
[2023-06-07 18:47] LABS: D Dimer 0.42 ug/mL (<0.48)
[2023-06-07 19:13] LABS: Influenza A QL RT-PCR Negative (Negative); Influenza B QL RT-PCR Negative (Negative); SARS-CoV-2 RNA PCR Negative (Negative)
--- NOTE | 2023-06-07 19:47 | PC.NURSE ---
report and care given to KARINA Ricardo. all questions answered
[2023-06-07 20:19] VITALS: BP 128/71; PULSE 88; RESP 18; O2SAT 98
[2023-06-07 20:59] LABS: Troponin I < 0.012 ng/mL (0.000-0.034)
== END 2023-06-07 21:36 | disposition home or self-care (01) ==
PROVIDERS: Emergency Provider Emergency Medicine
DX: R07.89 Other chest pain (principal); Z20.822 Contact with and (suspected) exposure to COVID-19; F17.210 Nicotine dependence, cigarettes, uncomplicated; E11.9 Type 2 diabetes mellitus without complications; I10 Essential (primary) hypertension; E78.5 Hyperlipidemia, unspecified
CPT/HCPCS: 36415; 71046; 80053; 83690; 84484; 85025; 85380; 85610; 85730; 87636; 93005; 96360; 96361; 99284; A9270; J7120